=== PATIENT | female | born 1955 | race Caucasian/White ===

== ENCOUNTER 2017-03-31 09:52 | Emergency (ER) | payer OTHER ==
[~2017-03-31] VITALS: Ht 165.1 cm; Wt 89.0 kg
[~2017-03-31 09:52] MED LIST: ASPI-664 PO; ATEN50TA PO; LOSA50TA6 PO; METF850T PO; SIMV20TA2 PO
[2017-03-31 09:54] VITALS: Ht 165.1 cm; Wt 89.0 kg
[2017-03-31] MEDS ORDERED: FAMO20TA18 PO (10:58)
[2017-03-31] MEDS ORDERED: METF850T PO (10:58)
--- NOTE | 2017-03-31 11:10 | RADRPT ---
PROCEDURE: XR Chest 1 view. CLINICAL INDICATION: Chest pain and palpitations TECHNIQUE: AP views of the chest were obtained. COMPARISON: October 25, 2015 FINDINGS: The heart is large. Calcified atherosclerosis is noted in the aorta. Mild elevation right hemidiaph ragm is identified. Atelectasis is noted at the lung bases. No consolidations are identified. No p neumothorax is seen. Osseous structures are intact. IMPRESSION: Cardiomegaly with calcified atherosclerosis in the aorta. Chronic mild elevation of the right hemidiaphragm. Atelectasis at the lung bases. RPTAT: AA .Demario Mcconnell MD, MD Date Time Electronically viewed and signed by .Demario Mcconnell MD, on 03/31/2017 11:09 .P/
[2017-03-31 11:16] LABS: ADD SCAN DIFF NO
[2017-03-31 11:20] LABS: BASOPHILS % 0.3 % (0.0-2.0); EOSINOPHILS # 0.2 10^3/ul (0.0-0.5); EOSINOPHILS % 2.2 % (0.0-7.0); HEMATOCRIT 41.9 % (37.0-47.0); HEMOGLOBIN 13.6 g/dl (12.0-16.0); LYMPHOCYTES # 1.6 10^3/ul (0.8-2.9); LYMPHOCYTES % 22.1 % (15.0-51.0); MEAN CORPUSCULAR HEMOGLOBIN 27.8 pg (29.0-33.0); MEAN CORPUSCULAR HGB CONC 32.5 g/dl (32.0-37.0); MEAN CORPUSCULAR VOLUME 85.5 fl (82.0-101.0); MONOCYTE # 0.4 10^3/ul (0.3-0.9); MONOCYTES % 4.9 % (0.0-11.0); NEUTROPHIL # 5.1 10^3/ul (1.6-7.5); NEUTROPHILS % 69.8 % (39.0-77.0); PLATELET COUNT 319 10^3/UL (140-415); RED CELL DISTRIBUTION WIDTH 12.7 % (11.5-14.5); WHITE BLOOD COUNT 7.3 10^3/ul (4.8-10.8)
[2017-03-31 11:40] LABS: ANION GAP 13 (8-16); BLOOD UREA NITROGEN 15 mg/dl (7-20); CALCIUM 9.7 mg/dl (8.4-10.2); CARBON DIOXIDE 24 mmol/L (21-31); CHLORIDE 105 mmol/L (97-110); CREATININE 0.55 mg/dl (0.44-1.00); GLUCOSE 177 mg/dl (70-220); MAGNESIUM 1.9 mg/dl (1.7-2.5); POTASSIUM 4.7 mmol/L (3.5-5.1); SODIUM 137 mmol/L (135-144)
[2017-03-31 11:44] LABS: INR 0.84; PROTIME 11.5 Sec (12.2-14.2); PT RATIO 0.9
[2017-03-31 11:45] LABS: PARTIAL THROMBOPLASTIN TIME 28.7 Sec (25.0-35.0)
[2017-03-31 11:52] LABS: TROPONIN-I < 0.012 ng/ml (0.00-0.12)
--- NOTE | 2017-03-31 12:19 | ERD ---
ER Documentation Chief Complaint Date/Time DATE: 03/31/17 TIME: 12:18 Chief Complaint dizziness intermittent, palpitations x 1 mos HPI This is a 61-year-old female presents to the emergency room for evaluation of intermittent palpitations for 1 months duration. The patient denies any active chest pain at this time. She states that she does feel a slight pressure when she gets her palpitations and states that her palpitations can last anywhere between 30 seconds and 1 minute. She denies any alcohol use, drug use, or trauma to the chest wall. She came to the emergency room today for evaluation. ROS All systems reviewed and are negative except as per history of present illness. Medications Home Meds Reported Medications Famotidine* (Famotidine*) 20 Mg Tablet, 20 MG PO BID, #60 TAB 03/31/17 Metformin Hcl* (Metformin Hcl*) 850 Mg Tablet, 850 MG PO WITH MEALS, #30 TAB THREE TIMES DAILY 03/31/17 Aspirin* (Aspirin* EC) 81 Mg Tablet.dr, 81 MG PO DAILY, TAB 07/17/15 Losartan Potassium* (Losartan Potassium*) 50 Mg Tablet, 50 MG PO DAILY, TAB 01/06/15 Atenolol* (Atenolol*) 50 Mg Tablet, 50 MG PO QHS, TAB 01/06/15 Discontinued Reported Medications Simvastatin (Simvastatin) 20 Mg Tablet, 20 MG PO HS, TAB 07/17/15 Metformin Hcl* (Metformin Hcl*) 850 Mg Tablet, 850 MG PO BID, TAB 07/17/15 Allergies Allergies: Coded Allergies: No Known Allergy (Unverified , 03/31/17) PMhx/Soc History of Surgery: Yes (HYSTERECTOMY, BLADDER SUSPENSION, MASS REMVL LT THIGH , TONSILLECTOMY, BTL) Anesthesia Reaction: No Hx Neurological Disorder: No Hx Respiratory Disorders: No Hx Cardiac Disorders: No Hx Psychiatric Problems: No Hx Alcohol Use: No Hx Substance Use: No Hx Tobacco Use: No Smoking Status: Unknown if ever smoked Physical Exam Vitals Vital Signs Date Time Temp Pulse Resp B/P Pulse Ox O2 Delivery O2 Flow Rate FiO2 03/31/17 11:47 58 18 161/90 99 Room Air 03/31/17 09:54 98.1 67 18 190/97 99 Physical Exam INITIAL VITAL SIGNS: Reviewed by me GENERAL: The patient is well developed and appropriate for usual state of health in no apparent distress HEENT: Pupils equal, round, and reactive to light. EOMI. There is no scleral icterus. NECK: C-spine is soft and supple, there is no meningismus. There is no cervical lymphadenopathy. LUNGS: Clear to auscultation bilaterally. There are no rales, wheezes or rhonchi. HEART: Regular rate and rhythm, no murmurs, clicks, rubs or gallops. ABDOMEN: Soft, non-tender, non-distended. There are bowel sounds in all four quadrants. No rebound or guarding. EXTREMITIES: There is no peripheral cyanosis or edema. No focal swelling or erythema. NEUROLOGICAL: The patient moves all four extremities with 5/5 strength. Cranial nerves II - XII are intact. Normal gait. Alert and oriented SKIN: There is no apparent rash or petechiae. HEME/LYMPHATIC: There is no evidence of excessive bruising or lymphedema. PSYCHIATRIC: The patient does not appear anxious or depressed. Result Diagram: 03/31/17 1040 03/31/17 1040 Results 24 hrs Laboratory Tests Test 03/31/17 10:40 White Blood Count 7.310^3/ul Red Blood Count 4.9010^6/ul Hemoglobin 13.6g/dl Hematocrit 41.9% Mean Corpuscular Volume 85.5fl Mean Corpuscular Hemoglobin 27.8pg Mean Corpuscular Hemoglobin Concent 32.5g/dl Red Cell Distribution Width 12.7% Platelet Count 75203^3/UL Mean Platelet Volume 10.0fl Neutrophils % 69.8% Lymphocytes % 22.1% Monocytes % 4.9% Eosinophils % 2.2% Basophils % 0.3% Nucleated Red Blood Cells % 0.0/100WBC Neutrophils # 5.110^3/ul Lymphocytes # 1.610^3/ul Monocytes # 0.410^3/ul Eosinophils # 0.210^3/ul Basophils # 0.010^3/ul Nucleated Red Blood Cells # 0.010^3/ul Prothrombin Time 11.5Sec Prothrombin Time Ratio 0.9 INR International Normalized Ratio 0.84 Activated Partial Thromboplast Time 28.7Sec Sodium Level 137mmol/L Potassium Level 4.7mmol/L Chloride Level 105mmol/L Carbon Dioxide Level 24mmol/L Anion Gap 13 Blood Urea Nitrogen 15mg/dl Creatinine 0.55mg/dl Glucose Level 177mg/dl Calcium Level 9.7mg/dl Magnesium Level 1.9mg/dl Troponin I < 0.012ng/ml Thyroid Stimulating Hormone (TSH) 3.120MIU/L Procedures/MDM EKG: Rate/Rhythm: [Normal Sinus Rhythm] QRS, ST, T-waves: [No changes consistent w/ acute ischemia] Impression: [No evidence of ischemia or arrhythmia] Chest X-ray 1V Interpreted by me: Soft Tissue: No acute abnormalities Bones: No acute abnormalities Mediastinum/Cardiac Silhouette/Lungs: [No acute abnormalities] This 61-year-old female presents to the emergency room for evaluation of heart palpitations. When I evaluated her this patient had no palpitations, her EKG did show a normal sinus rhythm with no evidence of arrhythmia. Chest x-ray is clear, she is hemodynamically stable and not hypoxic. The patient did have lab work drawn including a troponin which is negative. Her magnesium levels are normal, and her TSH is also within normal limits. I advised her that she will need to follow-up with commercial drone pilot as an outpatient for Holter monitor placement and she verbalized understanding and is okay the plan of care at this time. Departure Diagnosis: Primary Impression: Heart palpitations Condition: Stable DINAEYADCAILIN HEWITT March 31, 2017 12:19
[2017-03-31 12:46] VITALS: BP 155/83; PULSE 62; RESP 18
== END 2017-03-31 12:50 | disposition home or self-care (01) ==
LOC: E/R 09:52
DX: R00.2 Palpitations (principal); E11.9 Type 2 diabetes mellitus without complications; R07.9 Chest pain, unspecified; Z79.82 Long term (current) use of aspirin; Z79.84 Long term (current) use of oral hypoglycemic drugs
CPT/HCPCS: 36415; 71010; 80048; 83735; 84443; 84484; 85025; 85610; 85730; 93005

== ENCOUNTER 2017-10-29 02:37 | Emergency (ER) | payer OTHER ==
[~2017-10-29] VITALS: Ht 154.9 cm; Wt 89.7 kg
[~2017-10-29 02:37] MED LIST changes: +FAMO20TA18 PO; -SIMV20TA2 PO
[2017-10-29 02:39] VITALS: Ht 154.9 cm; Wt 89.7 kg
--- NOTE | 2017-10-29 03:06 | ERD ---
ER Documentation Chief Complaint Chief Complaint Pt. awoken this AM by "heart beating fast" and mild SOB. Hx: DM, HTN HPI The patient is a 62-year-old female, presenting to the ER because of palpitation about 30 minutes prior to arrival. She has history of palpitation, was seen in the ER on March 31, 2017 for palpitation. She felt better now, denies syncope, near syncope, neck pain, chest pain, chest pain with exertion/ vomiting/diaphoresis, pleuritic chest pain, abdominal pain, vomiting, dysuria, diarrhea. She does not smoke nor drink, has increased stress in her life. Past medical history: Hypertension, diabetes mellitus, dyslipidemia Past surgical history: Hysterectomy, bladder suspension, tonsillectomy ROS All systems reviewed and are negative except as per history of present illness. Medications Home Meds Reported Medications Famotidine* (Famotidine*) 20 Mg Tablet, 20 MG PO BID, #60 TAB 03/31/17 Metformin Hcl* (Metformin Hcl*) 850 Mg Tablet, 850 MG PO WITH MEALS, #30 TAB THREE TIMES DAILY 03/31/17 Aspirin* (Aspirin* EC) 81 Mg Tablet.dr, 81 MG PO DAILY, TAB 07/17/15 Losartan Potassium* (Losartan Potassium*) 50 Mg Tablet, 50 MG PO DAILY, TAB 01/06/15 Atenolol* (Atenolol*) 50 Mg Tablet, 50 MG PO QHS, TAB 01/06/15 Allergies Allergies: Coded Allergies: No Known Allergy (Unverified , 10/29/17) PMhx/Soc History of Surgery: Yes (HYSTERECTOMY, BLADDER SUSPENSION, MASS REMVL LT THIGH , TONSILLECTOMY, BTL) Anesthesia Reaction: No Hx Neurological Disorder: No Hx Respiratory Disorders: No Hx Cardiac Disorders: No Hx Psychiatric Problems: No Hx Alcohol Use: No Hx Substance Use: No Hx Tobacco Use: No Physical Exam Vitals Vital Signs Date Time Temp Pulse Resp B/P Pulse Ox O2 Delivery O2 Flow Rate FiO2 10/29/17 03:48 98.2 118 16 139/92 98 Room Air 10/29/17 02:39 97.7 142 22 148/100 98 Physical Exam Const: No acute distress. Head: Atraumatic. Eyes: Normal Conjunctiva. ENT: Normal External Ears, Nose and Mouth. Neck: Full range of motion. No meningismus. Resp: Clear to auscultation bilaterally. Cardio: Regular slightly tachycardic Abd: Soft, non distended, normal bowel sounds, non tender. Skin: No petechiae or rashes. Back: No midline or flank tenderness. Ext: No cyanosis, or edema. Neur: Awake and alert. No focal deficit Psych: Normal Mood and Affect. Result Diagram: 10/29/17 0313 10/29/17 0313 Results 24 hrs Laboratory Tests Test 10/29/17 03:13 White Blood Count 7.210^3/ul Red Blood Count 4.7010^6/ul Hemoglobin 13.2g/dl Hematocrit 39.5% Mean Corpuscular Volume 84.0fl Mean Corpuscular Hemoglobin 28.1pg Mean Corpuscular Hemoglobin Concent 33.4g/dl Red Cell Distribution Width 12.5% Platelet Count 31362^3/UL Mean Platelet Volume 10.0fl Neutrophils % 46.5% Lymphocytes % 35.4% Monocytes % 13.8% Eosinophils % 3.5% Basophils % 0.4% Nucleated Red Blood Cells % 0.0/100WBC Neutrophils # 3.410^3/ul Lymphocytes # 2.610^3/ul Monocytes # 1.010^3/ul Eosinophils # 0.310^3/ul Basophils # 0.010^3/ul Nucleated Red Blood Cells # 0.010^3/ul Prothrombin Time 11.5Sec Prothrombin Time Ratio 0.9 INR International Normalized Ratio 0.83 Activated Partial Thromboplast Time 30.7Sec D-Dimer 299.10ng/ml D-Dimer Comment Sodium Level 139mmol/L Potassium Level 3.4mmol/L Chloride Level 101mmol/L Carbon Dioxide Level 25mmol/L Anion Gap 16 Blood Urea Nitrogen 17mg/dl Creatinine 0.69mg/dl Glucose Level 181mg/dl Calcium Level 9.6mg/dl Troponin I < 0.012ng/ml Thyroid Stimulating Hormone (TSH) 1.050MIU/L Current Medications Medications (Trade) Dose Ordered Sig/Perla Route PRN Reason Start Time Stop Time Status Last Admin Dose Admin Potassium Chloride (Klor-Con 20) 20 meq ONCE ONCE PO 10/29/17 04:21 10/29/17 04:22 DC 10/29/17 04:56 Procedures/MDM EKG: Read by emergency physician Rate/Rhythm: Sinus tachycardia 115 beats/min QRS, ST, T-waves: No ST elevation, no T inversion Impression: Abnormal EKG MEDICAL MAKING DECISION: The patient is a 61-year-old female, presenting with acute palpitation of unclear etiology, acute hypokalemia. She was treated with potassium chloride 20 mg p.o. for acute hypokalemia. She felt better vital, signs improved The differential diagnoses considered include but are not limited to thyroid disease, anxiety attack, panic attack, acute stress Departure Diagnosis: Primary Impression: Palpitations Condition: Good Comments I discussed the findings with the patient. I advised the patient to follow-up with the primary physician in about 1-2 days, sooner if needed and return if any concern. Disclaimer: Inadvertent spelling and grammatical errors are likely due to EHR/ dictation software use and do not reflect on the overall quality of patient care. Also, please note that the electronic time recorded on this note does not necessarily reflect the actual time of the patient encounter. AILEEN JACOBSEN MD Oct 29, 2017 03:06
[2017-10-29 03:48] VITALS: TEMP 98.2
[2017-10-29 04:07] LABS: INR 0.83; PROTIME 11.5 Sec (11.9-14.9); PT RATIO 0.9
[2017-10-29 04:08] LABS: BASOPHILS % 0.4 % (0.0-2.0); EOSINOPHILS # 0.3 10^3/ul (0.0-0.5); EOSINOPHILS % 3.5 % (0.0-7.0); HEMATOCRIT 39.5 % (37.0-47.0); HEMOGLOBIN 13.2 g/dl (12.0-16.0); LYMPHOCYTES # 2.6 10^3/ul (0.8-2.9); LYMPHOCYTES % 35.4 % (15.0-51.0); MEAN CORPUSCULAR HEMOGLOBIN 28.1 pg (29.0-33.0); MEAN CORPUSCULAR HGB CONC 33.4 g/dl (32.0-37.0); MONOCYTES % 13.8 % (0.0-11.0); NEUTROPHIL # 3.4 10^3/ul (1.6-7.5); NEUTROPHILS % 46.5 % (39.0-77.0); PARTIAL THROMBOPLASTIN TIME 30.7 Sec (25.0-35.0); PLATELET COUNT 314 10^3/UL (140-415); RED CELL DISTRIBUTION WIDTH 12.5 % (11.5-14.5); WHITE BLOOD COUNT 7.2 10^3/ul (4.8-10.8)
[2017-10-29 04:09] LABS: ANION GAP 16 (8-16); BLOOD UREA NITROGEN 17 mg/dl (7-20); CALCIUM 9.6 mg/dl (8.4-10.2); CARBON DIOXIDE 25 mmol/L (21-31); CHLORIDE 101 mmol/L (97-110); CREATININE 0.69 mg/dl (0.44-1.00); GLUCOSE 181 mg/dl (70-220); POTASSIUM 3.4 mmol/L (3.5-5.1); SODIUM 139 mmol/L (135-144)
[2017-10-29 04:14] LABS: D-DIMER 299.1 ng/ml (<460)
[2017-10-29 04:20] LABS: TROPONIN-I < 0.012 ng/ml (0.00-0.12)
[2017-10-29] MEDS ORDERED: POTASSIUM CHLORIDE (SR) 20 MEQ TAB PO ONE (04:21)
[2017-10-29 05:19] VITALS: BP 139/86; PULSE 107; RESP 16
--- NOTE | 2017-10-29 06:54 | RADRPT ---
PROCEDURE: XR Chest. CLINICAL INDICATION: Chest Pain. TECHNIQUE: Portable single view of the chest COMPARISON: 10/25/2015 FINDINGS: The heart size is top normal. The aorta is slightly tortuous and calcified. Lung volumes are somewha t reduced but no definite focal infiltrate, pleural effusion, or overt congestive heart failure is s een. Degenerative change of the spine. IMPRESSION: Top normal heart size. Low lung volumes. RPTAT: HLBE Areli Soliz Physician Date Time Electronically viewed and signed by Areli Soliz, Physician on 10/29/2017 04:00 LE/
== END 2017-10-29 05:29 | disposition home or self-care (01) ==
LOC: E/R 02:37
DX: R00.2 Palpitations (principal); I10 Essential (primary) hypertension; E11.9 Type 2 diabetes mellitus without complications; R07.9 Chest pain, unspecified; Z79.82 Long term (current) use of aspirin; Z79.84 Long term (current) use of oral hypoglycemic drugs
CPT/HCPCS: 36415; 71010; 80048; 84443; 84484; 85025; 85378; 85610; 85730; 93005; Z7502; Z7610

== ENCOUNTER 2017-11-28 15:01 | Emergency (ER) | END 2017-11-28 17:40 | disposition home or self-care (01) ==

== ENCOUNTER 2018-12-12 00:52 | Emergency (ER) | payer OTHER ==
[~2018-12-12] VITALS: Ht 157.5 cm; Wt 87.6 kg
[~2018-12-12 00:52] MED LIST changes: +ACYC800T5 PO; -ASPI-664 PO; +ASPI-817 PO; +HYDR-4011 PO; +LOSA50TA14 PO; -LOSA50TA6 PO; -METF850T PO; +METF850T13 PO; +PRED20TA PO; +VITA1TAB82 PO
[2018-12-12 00:53] VITALS: Ht 157.5 cm; Wt 87.6 kg
--- NOTE | 2018-12-12 01:52 | ERD ---
ER Documentation Chief Complaint Chief Complaint PALPITATIONS [id number] HPI During the patient's encounter translation services were utilized Language: Nicaraguan Source: In person 63-year-old female who presents to the emergency with 3 weeks of intermittent palpitations. She states that intermittently while at rest and at nonspecific t sat[place] she will have runs of palpitations. At that time she has generalized malaise but denies any significant pressure or diaphoresis or nausea or vomiting. The patient has been here before for similar symptoms. She denies any fevers or chills, shortness of breath, no pleuritic pain, no calf swelling. Symptoms are improved at this time. ROS All systems reviewed and are negative except as per history of present illness. Medications Home Meds Active Scripts Hydrocodone/Acetaminophen ([place] 5-325 Tablet) 1 Each Tablet, 1 EACH PO QHS PRN for SEVERE PAIN LEVEL 7-10, #12 TAB Prov:ABIEL FERGUSON MD 11/28/17 Vitamin B Complex (Complex B-100) 1 Each Tablet.er, 1 EACH PO DAILY for 14 Days, TAB Prov:ABIEL FERGUSON MD 11/28/17 Prednisone (Prednisone) 20 Mg Tab, 40 MG PO DAILY for 5 Days, TAB Prov:ABIEL FERGUSON MD 11/28/17 Acyclovir* (Zovirax*) 800 Mg Tablet, 800 MG PO 5 TIMES DAILY for 7 Days, TAB Prov:ABIEL FERGUSON MD 11/28/17 Reported Medications Famotidine* (Famotidine*) 20 Mg Tablet, 20 MG PO BID, #60 TAB 03/31/17 Metformin Hcl* (Metformin Hcl*) 850 Mg Tablet, 850 MG PO WITH MEALS, #30 TAB THREE TIMES DAILY 03/31/17 Aspirin* (Aspirin* EC) 81 Mg Tablet.dr, 81 MG PO DAILY, TAB 07/17/15 Losartan Potassium* (Losartan Potassium*) 50 Mg Tablet, 50 MG PO DAILY, TAB 01/06/15 Atenolol* (Atenolol*) 50 Mg Tablet, 50 MG PO QHS, TAB 01/06/15 Allergies Allergies: Coded Allergies: No Known Allergy (Unverified , 10/29/17) PMhx/Soc History of Surgery: Yes (TONSILLECTOMY, HYSTERECTOMY) Anesthesia Reaction: No Hx Neurological Disorder: No Hx Respiratory Disorders: No Hx Cardiac Disorders: Yes (HTN, DM) Hx Psychiatric Problems: No Hx Miscellaneous Medical Probl: Yes (DEPRESSION) Hx Alcohol Use: No Hx Substance Use: No Hx Tobacco Use: No Smoking Status: Never smoker FmHx Family History: No diabetes Physical Exam Vitals Vital Signs Date Temp Pulse Resp B/P (MAP) Pulse Ox O2 O2 Flow FiO2 Time Delivery Rate 12/12/18 98.3 96 19 147/104 98 Room Air 01:22 (118) 12/12/18 98.9 87 19 186/80 98 00:53 (115) Physical Exam General: Well developed, well nourished, no acute distress Head: Normocephalic, atraumatic. Eyes: Pupils equally reactive, EOM intact ENT: Moist mucous membranes Neck: Supple, no lymphadenopathy Respiratory: Lungs clear bilaterally, no distress Cardiovascular: RRR, no murmurs, rubs, or gallops Abdominal: Soft, non-tender, non-distended, no peritoneal signs : Deferred MSK: No edema, no unilateral swelling, 5/5 strength Neurologic: Alert and oriented, moving all extremities, normal speech, no focal weakness, no cerebellar signs Skin: No rash Psych: Normal mood Result Diagram: 12/12/18 0140 12/12/18 0140 Results 24 hrs Laboratory Tests Test 12/12/18 01:40 White Blood Count 7.3 10^3/ul Red Blood Count 4.62 10^6/ul Hemoglobin 12.7 g/dl Hematocrit 38.9 % Mean Corpuscular Volume 84.2 fl Mean Corpuscular Hemoglobin 27.5 pg Mean Corpuscular Hemoglobin Concent 32.6 g/dl Red Cell Distribution Width 12.8 % Platelet Count 283 10^3/UL Mean Platelet Volume 10.0 fl Immature Granulocytes % 0.300 % Neutrophils % 50.1 % Lymphocytes % 30.1 % Monocytes % 14.4 % Eosinophils % 4.7 % Basophils % 0.4 % Nucleated Red Blood Cells % 0.0 /100WBC Immature Granulocytes # 0.020 10^3/ul Neutrophils # 3.7 10^3/ul Lymphocytes # 2.2 10^3/ul Monocytes # 1.1 10^3/ul Eosinophils # 0.3 10^3/ul Basophils # 0.0 10^3/ul Nucleated Red Blood Cells # 0.0 10^3/ul Sodium Level 137 mmol/L Potassium Level 4.2 mmol/L Chloride Level 101 mmol/L Carbon Dioxide Level 24 mmol/L Anion Gap 12 Blood Urea Nitrogen 18 mg/dl Creatinine 0.53 mg/dl Est Glomerular Filtrat Rate mL/min > 60 mL/min Glucose Level 159 mg/dl Calcium Level 9.8 mg/dl Troponin I < 0.012 ng/ml Thyroid Stimulating Hormone (TSH) Pending Free Thyroxine Index Pending Thyroxine (T4) Pending Triiodothyronine (T3) Uptake Pending Procedures/MDM EKG, MONITORS, & DIAGNOSTIC IMAGING: EKG: I reviewed and interpreted a 12-lead EKG. Rhythm: Normal sinus rhythm ST Changes: No contiguous ST segment elevations T waves: No contiguous T wave inversions Impression: No evidence of acute cardiac ischemia Chest x-ray: I reviewed and interpreted a 1 view of the chest Mediastinum: No enlargement Cardiac silhouette: No cardiomegaly Airspace: Clear lung gaona bilaterally without evidence of pneumothorax Bones: No evidence of fracture LAB INTERPRETATION: * No electrolyte disturbance and negative troponin. * Thyroid profile pending can be followed on an outpatient basis MEDICAL DECISION MAKING: The patient has subacute and Acute on chronic issues with palpitations. These are very nonspecific and the patient has no symptoms currently. I have a low clinical concern for acute coronary syndrome. The patient has been here now twice this is the third time for these palpitations in the past. The patient has not followed up with a manufacturing assistant and has not had a Holter or event monitor which would be the appropriate next step. No signs or symptoms concerning for pulmonary embolism, dissection or acute coronary syndrome. Basic blood work to rule out alternative process such as anemia would be reasonable. The patient was strongly advised to follow-up with primary care physician for outpatient cardiology follow-up. ER COURSE: * Unremarkable workup in the emergency room setting. The patient remains with normal vital signs and no significant symptoms CONSULTATION: None DISPOSITION PLAN: The patient does not have an identifiable emergent medical condition that warrants inpatient hospitalization at this time. The patient is deemed safe for discharge with outpatient follow-up. We discussed follow up with the patient's primary care doctor within 24 to 48 hours as needed. We also discussed return to the emergency room for worsening symptoms or worsening condition. Outpatient referral: [facility] for Holter or event monitor Discharge Medications: none required Departure Diagnosis: Primary Impression: Palpitations Condition: Stable GARRETT DALEY MD Dec 12, 2018 01:52
[2018-12-12 03:12] VITALS: BP 119/76; PULSE 76; RESP 19
== END 2018-12-12 03:15 | disposition home or self-care (01) ==
LOC: E/R 00:52
DX: R00.2 Palpitations (principal); E11.9 Type 2 diabetes mellitus without complications; I10 Essential (primary) hypertension; Z79.82 Long term (current) use of aspirin; Z79.84 Long term (current) use of oral hypoglycemic drugs
CPT/HCPCS: 36415; 71045; 80048; 84436; 84443; 84479; 84484; 85025; 93005; Z7502; Z7610